=== PATIENT | male | born 1995 | race African-American/Black ===

== ENCOUNTER 2016-11-24 14:43 | Emergency (ER) | payer OTHER ==
[~2016-11-24] VITALS: Ht 190.5 cm; Wt 74.0 kg
[2016-11-24 15:03] VITALS: BP 105/62
[2016-11-24] MEDS ORDERED: IBUPROFEN 200 MG TABLET ONE (17:15)
[2016-11-24] MEDS ORDERED: IBUPROFEN 200 MG TABLET PO ONE (17:30)
== END 2016-11-24 17:24 | disposition home or self-care (01) ==
LOC: ED 17:18
DX: S62.337A Displaced fracture of neck of fifth metacarpal bone, left hand, initial encounter for closed fracture (principal); S62.234A Other nondisplaced fracture of base of first metacarpal bone, right hand, initial encounter for closed fracture; F12.10 Cannabis abuse, uncomplicated; Y04.0XXA Assault by unarmed brawl or fight, initial encounter; Y93.89 Activity, other specified; Y99.8 Other external cause status; Y92.89 Other specified places as the place of occurrence of the external cause
CPT/HCPCS: 99284

== ENCOUNTER 2017-01-11 11:28 | Emergency (ER) | payer OTHER ==
[~2017-01-11] VITALS: Ht 190.5 cm; Wt 70.0 kg
[2017-01-11] MEDS ORDERED: SODIUM CHLORIDE 0.9% 1,000 ML IV ONE (11:37)
[2017-01-11] MEDS ORDERED: HYDROmorphone 1 MG/ML, 1ML ONE (11:54)
[2017-01-11] MEDS ORDERED: ONDANSETRON 2MG/ML, 2ML ONE (11:54)
[2017-01-11] MEDS ORDERED: SODIUM CHLORIDE 0.9% 1,000ML IVBOLUS ONE (12:00)
[2017-01-11] MEDS ORDERED: SODIUM CHLORIDE FLUSH 10ML SYR IVF ONE (12:00)
[2017-01-11] MEDS ORDERED: HYDROmorphone 1 MG/ML, 1ML IVPush PRN (12:00)
[2017-01-11] MEDS ORDERED: ONDANSETRON 2MG/ML, 2ML IVPush ONE (12:00)
[2017-01-11 12:16] LABS: ASPARTATE AMINO TRANSFERASE 13 U/L (15-37); BLOOD UREA NITROGEN 20 mg/dL (7-18)
[2017-01-11 12:18] LABS: HEMATOCRIT 38.2 % (39.2-51.8); HEMOGLOBIN 12.6 g/dL (13.7-18.0); WHITE BLOOD COUNT 12.4 x10^3/uL (3.4-10)
[2017-01-11] MEDS ORDERED: OMNIPAQUE 350 MG/ML, 100ML BOTTLE ONE (13:54)
[2017-01-11 16:31] VITALS: BP 116/80
== END 2017-01-11 17:27 | disposition home or self-care (01) ==
LOC: ED 16:28
DX: T81.31XA Disruption of external operation (surgical) wound, not elsewhere classified, initial encounter (principal); Y92.89 Other specified places as the place of occurrence of the external cause
CPT/HCPCS: 36415; 74177; 80053; 81003; 83605; 83690; 85025; 96361; 96374; 96375; 99285; J1170; J2405; J7030; Q9967

== ENCOUNTER 2017-01-19 19:57 | Emergency (ER) | payer OTHER ==
[~2017-01-19] VITALS: Ht 190.5 cm; Wt 74.1 kg
[2017-01-19] MEDS ORDERED: ALBU1.25 NEB (21:25)
[2017-01-19] MEDS ORDERED: norco (21:25)
[2017-01-19] MEDS ORDERED: MORPHINE SULFATE 4 MG/ML, 1ML ONE (21:49)
[2017-01-19] MEDS ORDERED: ONDANSETRON 2MG/ML, 2ML ONE (21:50)
[2017-01-19 22:06] LABS: HEMATOCRIT 45.8 % (39.2-51.8); HEMOGLOBIN 14.8 g/dL (13.7-18.0); WHITE BLOOD COUNT 12.6 x10^3/uL (3.4-10)
[2017-01-19 22:18] LABS: BLOOD UREA NITROGEN 11 mg/dL (7-18)
[2017-01-19 22:25] LABS: ASPARTATE AMINO TRANSFERASE 16 U/L (15-37)
[2017-01-19] MEDS: MORPHINE SULFATE 4 MG/ML, 1ML IVPush PRN (22:27)
[2017-01-19] MEDS ORDERED: ONDANSETRON 2MG/ML, 2ML IVPush ONE (22:30)
[2017-01-19] MEDS ORDERED: SODIUM CHLORIDE FLUSH 10ML SYR IVF ONE (22:30)
[2017-01-19] MEDS ORDERED: SODIUM CHLORIDE 0.9% 1,000ML IVBOLUS ONE (22:30)
[2017-01-19] MEDS ORDERED: OMNIPAQUE 350 MG/ML, 100ML BOTTLE ONE (23:30)
[2017-01-19] MEDS ORDERED: CLINDAMYCIN PMX 600MG/50ML 50 ML ONE (23:46)
[2017-01-20] MEDS ORDERED: CLINDAMYCIN PMX 600MG/50ML 50 ML IV ONE
[2017-01-20] MEDS ORDERED: CEFTRIAXONE PMX 1GM/50ML 50 ML IV ONE (01:00)
[2017-01-20] MEDS ORDERED: CEFTRIAXONE PMX 1GM/50ML 0 ML ONE (01:04)
[2017-01-20] MEDS ORDERED: MORPHINE SULFATE 4 MG/ML, 1ML ONE (01:05)
[2017-01-20] MEDS: MORPHINE SULFATE 4 MG/ML, 1ML IVPush PRN (01:08)
[2017-01-20 02:45] VITALS: BP 127/88
== END 2017-01-20 02:53 | disposition home or self-care (01) ==
LOC: ED 22:35
DX: R10.33 Periumbilical pain (principal); L02.211 Cutaneous abscess of abdominal wall; Z98.890 Other specified postprocedural states
CPT/HCPCS: 36415; 74177; 80053; 81001; 83690; 85025; 87070; 87077; 87186; 87205; 96365; 96367; 96375; 96376; 99285; J0696; J2405; J7030; Q9967

== ENCOUNTER 2017-03-18 07:02 | Emergency (ER) | payer SELFPAY ==
[~2017-03-18] VITALS: Ht 185.4 cm; Wt 68.0 kg
[~2017-03-18 07:02] MED LIST: ALBU1.25 NEB; norco
[2017-03-18] MEDS ORDERED: HYDROmorphone 1 MG/ML, 1ML IVPush PRN (07:30)
[2017-03-18] MEDS ORDERED: ONDANSETRON 2MG/ML, 2ML IVPush ONE (07:30)
[2017-03-18] MEDS ORDERED: HYDROmorphone 1 MG/ML, 1ML ONE (07:47)
[2017-03-18] MEDS ORDERED: ONDANSETRON 2MG/ML, 2ML ONE (07:47)
[2017-03-18 08:02] LABS: HEMOGLOBIN 16.3 g/dL (13.7-18.0); WHITE BLOOD COUNT 20.2 x10^3/uL (3.4-10)
[2017-03-18 08:04] LABS: BLOOD UREA NITROGEN 7 mg/dL (7-18)
[2017-03-18 08:08] LABS: ASPARTATE AMINO TRANSFERASE 15 U/L (15-37)
[2017-03-18] MEDS ORDERED: OMNIPAQUE 350 MG/ML, 100ML BOTTLE ONE (09:12)
[2017-03-18 11:16] VITALS: BP 130/80
== END 2017-03-18 11:36 | disposition home or self-care (01) ==
LOC: ED 10:13
DX: R10.30 Lower abdominal pain, unspecified (principal); J45.901 Unspecified asthma with (acute) exacerbation; D72.829 Elevated white blood cell count, unspecified
CPT/HCPCS: 36415; 71010; 74177; 80053; 81003; 85025; 96374; 96375; 99285; J1170; J2405; Q9967